=== PATIENT | male | born 1985 | race Caucasian/White ===

== ENCOUNTER 2018-03-29 11:50 | Emergency (ER) | payer OTHER, MEDICAID ==
[~2018-03-29] VITALS: Ht 170.2 cm; Wt 81.0 kg
[2018-03-29] MEDS ORDERED: METOPROLOL SUCC50 MG PO (12:04)
[2018-03-29] MEDS ORDERED: CYCLOBENZAPRINE10 MG PO (14:17)
== END 2018-03-29 14:30 | disposition home or self-care (01) ==
LOC: ED 11:50
DX: S39.012A Strain of muscle, fascia and tendon of lower back, initial encounter (principal); F17.200 Nicotine dependence, unspecified, uncomplicated; Z79.899 Other long term (current) drug therapy; X50.0XXA Overexertion from strenuous movement or load, initial encounter
CPT/HCPCS: 72100; 99283